=== PATIENT | female | born 1945 | race Caucasian/White ===

== ENCOUNTER → 2016-11-08 | Day surgery (SDC) | payer MEDICARE ==
[2016-11-07 14:07] VITALS: BP 118/60
[~2016-11-08] VITALS: Ht 149.8 cm; Wt 78.9 kg
[~2016-11-08] MED LIST: AMITRIPTYLINE H75 MG PO; ASPIRIN81 M1 PO; LOVASTATIN10 MG PO; METOPROLOL TART50 M1 PO; NAPROSYN500 MG PO; NORCO 5-325 TA1 EACH PO; PRILOSEC40 M1 PO
--- NOTE | ~2016-11-08 | O ---
[place], [place] OPERATIVE NOTE NAME: SHAKIRA PEDERSEN UNIT #: [id number] ROOM: DOCTOR: GERRY DEAL MD BIRTHDATE: [birth year] DOS: 11/08/2016 PREOPERATIVE DIAGNOSIS: Right breast mass (3 o'clock position). POSTOPERATIVE DIAGNOSIS: Right breast mass (3 o'clock position). PROCEDURE: Excision of right breast mass. SURGEON: Gerry Deal M.D. CAD DESIGNER DRAFTER: MS3. ANESTHESIA: MAC with local (1% plain lidocaine). INDICATIONS: This is a 71-year-old lady with a right breast mass; clinically, an epidermal inclusion cyst, who is here for the above-mentioned procedure. The procedure and its complications were explained to the patient in detail preoperatively. Complications that were discussed included but were not limited to, bleeding, infection, and damage to underlying vital structures. She agreed to proceed. DESCRIPTION OF PROCEDURE: After identifying the patient, the patient was brought to the operating suite and laid in the supine position. After IV sedation was administered, a timeout procedure was called and the parts were then painted and draped in the usual sterile fashion. An elliptical incision was marked and local anesthesia was infiltrated around the mass. The mass was excised in its entirety with the help of a knife and sent for histopathological diagnosis. Hemostasis was achieved with the help of electrocautery. Thereafter, the subcutaneous tissue was approximated with the help of 3-0 Vicryl and the skin edges were approximated with the help of 4-0 Vicryl in a subcuticular running fashion. Dressing was placed. The patient tolerated the procedure well. There were no complications. Dr. Gerry Deal, the attending surgeon, was present throughout the operating case. [place], [place] OPERATIVE NOTE NAME: SHAKIRA PEDERSEN UNIT #: [id number] ROOM: DOCTOR: GERRY DEAL MD BIRTHDATE: [birth year] Gerry Deal MD CM:OPRECORD:OPERATIVE NOTE 1005 [id number] GERRY DEAL MD 11/08/16 1113 interface
[2016-11-08 08:20] VITALS: BP 148/82
[2016-11-08 10:07] VITALS: BP 130/68
[2016-11-08 10:13] VITALS: BP 143/90
[2016-11-08 10:28] VITALS: BP 143/88
[2016-11-08 10:43] VITALS: BP 144/89
== END | disposition home or self-care (01) ==
LOC: SDC 11-07 14:00
DX: L72.0 Epidermal cyst (principal); I10 Essential (primary) hypertension; F41.9 Anxiety disorder, unspecified; J40 Bronchitis, not specified as acute or chronic

== ENCOUNTER → 2017-05-23 | Outpatient (CLI) | payer MEDICARE ==
[2017-05-23 09:02] LABS: CREATININE 0.97 mg/dL (0.55-1.02)
== END | disposition home or self-care (01) ==
LOC: LAB 00:47 → CT 10:00 → LAB 10:00
PROVIDERS: Internal Medicine
DX: K57.32 Diverticulitis of large intestine without perforation or abscess without bleeding (principal); K44.9 Diaphragmatic hernia without obstruction or gangrene; N20.0 Calculus of kidney; K86.89 Other specified diseases of pancreas; N26.1 Atrophy of kidney (terminal); M51.36 Other intervertebral disc degeneration, lumbar region; M43.16 Spondylolisthesis, lumbar region; Z90.710 Acquired absence of both cervix and uterus; Z90.49 Acquired absence of other specified parts of digestive tract; Z98.51 Tubal ligation status

== ENCOUNTER → 2017-07-11 | Outpatient (CLI) | payer MEDICARE | END | disposition home or self-care (01) | LOC: MAMMO 01:51 | DX: Z12.31 Encounter for screening mammogram for malignant neoplasm of breast (principal) ==

== ENCOUNTER → 2018-06-03 | Outpatient (CLI) | payer MEDICARE | END | disposition home or self-care (01) | LOC: RAD 13:27 | DX: M16.11 Unilateral primary osteoarthritis, right hip (principal); M17.0 Bilateral primary osteoarthritis of knee; M25.552 Pain in left hip ==

== ENCOUNTER → 2018-06-04 | Outpatient (CLI) | payer MEDICARE | END | disposition home or self-care (01) | LOC: RAD 01:12 | DX: Z78.0 Asymptomatic menopausal state (principal); Z90.710 Acquired absence of both cervix and uterus ==

== ENCOUNTER → 2018-07-15 | Outpatient (CLI) | payer MEDICARE | END | disposition home or self-care (01) | LOC: MAMMO 04:04 | DX: Z12.31 Encounter for screening mammogram for malignant neoplasm of breast (principal) ==

== ENCOUNTER 2019-12-13 07:31 | Emergency (ER) | payer MEDICARE ==
[~2019-12-13] VITALS: Ht 149.8 cm; Wt 77.6 kg
== END 2019-12-13 08:59 | disposition home or self-care (01) ==
LOC: ED 07:31
DX: S01.311A Laceration without foreign body of right ear, initial encounter (principal); S20.211A Contusion of right front wall of thorax, initial encounter; S60.012A Contusion of left thumb without damage to nail, initial encounter; M43.6 Torticollis; M19.90 Unspecified osteoarthritis, unspecified site; E66.9 Obesity, unspecified; I10 Essential (primary) hypertension; K21.9 Gastro-esophageal reflux disease without esophagitis; Z79.899 Other long term (current) drug therapy; Z79.82 Long term (current) use of aspirin; Z90.49 Acquired absence of other specified parts of digestive tract; W01.198A Fall on same level from slipping, tripping and stumbling with subsequent striking against other object, initial encounter; Y93.89 Activity, other specified; Y92.098 Other place in other non-institutional residence as the place of occurrence of the external cause; Y99.8 Other external cause status

== ENCOUNTER → 2020-04-28 | Outpatient (CLI) | payer MEDICARE ==
[2020-04-28 15:08] LABS: BASO # 0.1 10*3/uL (0.0-0.1); BASO % 0.5 % (0.0-1.0); EOS # 0.2 10*3/uL (0.0-0.4); EOS % 1.7 % (1.0-4.0); LYMPH # 3.5 10*3/uL (1.3-4.4); LYMPH % 34.4 % (27.0-41.0); MEAN CELL VOLUME 93.6 fl (81.0-99.0); MEAN CORPUSCULAR HGB 29.8 pg (27.0-31.0); MEAN CORPUSCULAR HGB CONC 31.8 g/dl (33.0-37.0); MEAN PLATELET VOLUME 11.4 fl (9.6-12.3); MONO # 0.7 10*3/uL (0.1-1.0); MONO % 7.2 % (3.0-9.0); NEUT # 5.6 10*3/uL (2.3-7.9); NEUT % 55.9 % (47.0-73.0); PLATELET COUNT AUTOMATED 209 10*3/uL (130-400); RED CELL DISTRI WIDTH 14.3 % (0-14.5); WHITE BLOOD COUNT 10.1 10*3/uL (4.8-10.8)
[2020-04-28 15:38] LABS: ALBUMIN 3.4 gm/dl (3.1-4.5); CREATININE 1.09 mg/dL (0.55-1.02); FREE T4 0.94 ng/dl (0.76-1.46); POTASSIUM 4.3 mmol/L (3.5-5.1); TOTAL PROTEIN 7.7 gm/dL (6.4-8.2)
[2020-04-28 15:43] LABS: THYROID STIM HORMONE (HS) 2.92 uIU/ml (0.358-4.75)
[2020-04-28 16:18] LABS: VITAMIN D, 25-HYDROXY 29.5 ng/mL (30-100)
== END | disposition home or self-care (01) ==
LOC: LAB 00:16 → RAD 14:00 → MAMMO 14:30
PROVIDERS: ATTEND Internal Medicine
DX: Z12.31 Encounter for screening mammogram for malignant neoplasm of breast (principal); M85.89 Other specified disorders of bone density and structure, multiple sites; I10 Essential (primary) hypertension; K21.0 Gastro-esophageal reflux disease with esophagitis; N95.9 Unspecified menopausal and perimenopausal disorder; D52.9 Folate deficiency anemia, unspecified; D51.9 Vitamin B12 deficiency anemia, unspecified; R79.82 Elevated C-reactive protein (CRP); R74.9 Abnormal serum enzyme level, unspecified; R79.89 Other specified abnormal findings of blood chemistry; R53.81 Other malaise; E55.9 Vitamin D deficiency, unspecified

== ENCOUNTER → 2020-05-18 | Outpatient (CLI) | payer MEDICARE | END | disposition home or self-care (01) | LOC: US 01:36 | PROVIDERS: ATTEND Internal Medicine | DX: N18.9 Chronic kidney disease, unspecified (principal); N28.1 Cyst of kidney, acquired ==

== ENCOUNTER → 2021-01-02 | Outpatient (CLI) | payer MEDICARE ==
[~2021-01-02] MED LIST changes: +ALLOPURINOL100 MG PO; +FOSAMAX70 M1 PO; +LOPRESSOR100 M1 PO; -METOPROLOL TART50 M1 PO; +OYSTER SHELL 51 EACH PO; +SINEMET 25-1001 EACH PO
== END | disposition home or self-care (01) ==
LOC: CARD 00:15
PROVIDERS: ATTEND Internal Medicine
DX: I44.0 Atrioventricular block, first degree (principal); R53.81 Other malaise

== ENCOUNTER → 2021-06-12 | Outpatient (CLI) | payer MEDICARE | END | disposition home or self-care (01) | LOC: MAMMO 00:12 | PROVIDERS: ATTEND Internal Medicine | DX: Z12.31 Encounter for screening mammogram for malignant neoplasm of breast (principal); N64.89 Other specified disorders of breast ==

== ENCOUNTER → 2022-12-21 | Outpatient (CLI) | payer MEDICARE | END | disposition home or self-care (01) | LOC: CARD 00:43 | PROVIDERS: ATTEND Internal Medicine | DX: R94.39 Abnormal result of other cardiovascular function study (principal) ==

== ENCOUNTER → 2023-12-10 | Outpatient (CLI) | payer MEDICARE | END | disposition home or self-care (01) | LOC: CARD 00:30 | PROVIDERS: ATTEND Internal Medicine | DX: I07.1 Rheumatic tricuspid insufficiency (principal); I65.23 Occlusion and stenosis of bilateral carotid arteries; R06.02 Shortness of breath; R42 Dizziness and giddiness ==